=== PATIENT | female | born 1990 | race Two or more races ===

== ENCOUNTER 2018-12-04 09:52 | Outpatient (CLI) | payer BC | END 2018-12-04 23:59 | disposition home or self-care (01) | LOC: MRI 09:52 | PROVIDERS: ATTEND Legal Medicine | DX: M48.07 Spinal stenosis, lumbosacral region (principal); M51.27 Other intervertebral disc displacement, lumbosacral region; M25.862 Other specified joint disorders, left knee; M25.78 Osteophyte, vertebrae | CPT/HCPCS: 72148-TC; 73721-TC ==